=== PATIENT | female | born 1940 ===

== ENCOUNTER 2021-01-17 07:15 | Inpatient (IN) | payer OTHER ==
[~2021-01-17] VITALS: Ht 154.9 cm; Wt 46.3 kg
[2021-01-17] MEDS ORDERED: CARDIZEM CD300 MG PO (10:42)
[2021-01-17] MEDS ORDERED: PLAVIX75 MG PO (10:42)
[2021-01-17] MEDS ORDERED: LIPITOR20 MG PO (10:42)
[2021-01-17] MEDS ORDERED: ALTACE10 MG PO (10:43)
[2021-01-22] MEDS ORDERED: ALENDRONATE SOD35 MG (14:43)
[2021-01-22] MEDS ORDERED: WAL-FEX ALLERG180 MG (14:43)
[2021-01-22] MEDS ORDERED: BREO ELLIPTA 21 EACH (14:43)
[2021-01-23] MEDS ORDERED: DUI500 PO (07:40)
[2021-01-23] MEDS ORDERED: PERCOCET 5-3251 EACH PO (07:40)
== END 2021-01-23 09:40 | disposition home or self-care (01) | DRG 483 ==
LOC: O/R 01-22 05:55 → SURH 01-22 07:15 → SURG 01-22 17:33
PROVIDERS: ADMIT Orthopaedic Surgery; ATTEND Orthopaedic Surgery
PROC: 0LS40ZZ Reposition Left Upper Arm Tendon, Open Approach (ICD-10-PCS; 2021-01-22)
PROC: 0RHK04Z Insertion of Internal Fixation Device into Left Shoulder Joint, Open Approach (ICD-10-PCS; 2021-01-22)
PROC: 3E0F7SF Introduction of Other Gas into Respiratory Tract, Via Natural or Artificial Opening (ICD-10-PCS; 2021-01-22)
PROC: 0RRK00Z Replacement of Left Shoulder Joint with Reverse Ball and Socket Synthetic Substitute, Open Approach (ICD-10-PCS; principal; 2021-01-22 10:00)
DX: M62.512 Muscle wasting and atrophy, not elsewhere classified, left shoulder (principal); M19.012 Primary osteoarthritis, left shoulder; Z20.822 Contact with and (suspected) exposure to COVID-19; M75.22 Bicipital tendinitis, left shoulder